=== PATIENT | female | born 1985 | race Caucasian/White ===

== ENCOUNTER 2021-10-31 22:48 | Inpatient (IN) ==
[2021-10-31] MEDS ORDERED: LACTATED RINGER'S 1,000 ML IV PRN (23:17)
[2021-10-31] MEDS ORDERED: OXYTOCIN 30 UNITS/500 ML BAG IV PRN (23:17)
--- NOTE | 2021-10-31 23:23 | History & Physical Report ---
Date of Service October 31, 2021 Assessment & Plan (1) Normal labor: Plan: IUP at 40 weeks in active labor requesting epidural analgesia anticipate vaginal History of Present Illness Primary Care Provider: Joanna Raymond DO Patient is a 26 yo white female EDC 10/27/21 who presents with SPROM at 2200 tonight for clear fluid. Irregular contractions prior to this then became much stronger. Pergnancy complicated by AMA. GBS - negative Allergies Allergy/AdvReac Type Severity Reaction Status Date / Time Sulfa (Sulfonamide Allergy Verified 10/24/21 15:21 Antibiotics) Home Medications Medication Instructions Recorded Confirmed Type prenat.vits,ivonne,[id number] 1 tab PO DAILY 03/14/21 10/31/21 History Patient History Medical History (Updated 10/31/21 @ 23:22 by Wandy Morales MD, FACOG) Depression with anxiety Surgical History Hx of lumbosacral spine surgery L4/S1 disectomy, laminectomy (2010)- no hardware S/P wisdom tooth extraction Family History Grandfather (Maternal) Colorectal cancer Mother Uterine cancer Cancer Brain Cancer Father Cancer kidney Grandfather (Paternal) Lung cancer Denies family history of Ovarian cancer Prostate cancer Breast cancer Social History (Updated 03/14/21 @ 15:13 by Evette Vargas, MARGARITA) Smoking Status: Former smoker Second Hand Exposure: No; Hx Alcohol Use: No Hx Substance Use: No Preferred Language: [place] Islander Communication Ability: Effective Visual Impairment: No Limitations Hearing Ability: Normal Healthcare Administration Internship Required: No Beliefs That Will Affect Care: None marital status: marital status details: Jose Juan Sevilla (31) [phone] Current Living Situation: Spouse Current Living Situation Comment: lives with spouse. No pets current occupational status: employed current occupation: [employer] Other Information That Helps Us Care for You: No Feels Safe at Home: Yes Safety Concerns: Feels Safe At This Time Assistive Devices: None Review of Systems All systems reviewed & are unremarkable except as noted in HPI & below Physical Exam 2 Constitutional: WD/WN, vitals as above Respiratory: normal respiratory effort, lungs clear to auscultation Cardiovascular: RRR, no murmur, no edema Psychiatric: A+Ox3, euthymic affect Genitourinary: OB Exam Abdomen: + vertex and + regular contractions Manual OB Exam: + cervical dilation 4 cm, + cervical effacement 100% and + station -1 Results & Data ([facility]) Vital Signs (Past 12 Hours) Vital Signs Temp Pulse Resp BP 10/31/21 23:14 75 173/89 H 10/31/21 23:13 74 191/105 H 10/31/21 22:58 98.1 F 20 Code Status & VTE Plan VTE Prophylaxis Plan VTE Prophylaxis will be ordered: No Coding Level of Care Code None Diagnoses Normal labor O80; Z37.9
[2021-10-31] MEDS ORDERED: BUPIVACAINE 0.25% 30 ML VIAL ONE (23:43)
[2021-10-31] MEDS ORDERED: fentaNYL 2MCG/ML ROPIVACAINE 1.25MG/ML 100 ML BAG EPI ONE (23:43)
[2021-10-31] MEDS ORDERED: ePHEDrine sulfate 50 MG/ML AMP ONE (23:43)
[2021-10-31] MEDS ORDERED: fentaNYL citrate 100 MCG/2 ML VIAL ONE (23:43)
[2021-10-31] MEDS ORDERED: SODIUM CHLORIDE 0.9% INJ 10 ML VIAL ONE (23:43)
[2021-10-31 23:57] LABS: Hematocrit (blood only) 40.5 % (37-47); Hemoglobin 13.8 g/dL (12.0-16.0); Mean Corpuscular Hemoglobin 30.3 pg (25-34); Mean Corpuscular Hgb Conc 34.1 g/dL (32-36); Mean Platelet Volume 11.8 fL (7.4-10.4); Platelet Count 243 K/uL (130-400); RDW Coefficient of Variation 12.2 % (11.5-14.5); RDW Standard Deviation 39.1 fL (36.4-46.3); Red Blood Count 4.55 M/uL (4.2-5.4); White Blood Count 17.95 K/uL (4.8-10.8)
[2021-11-01] MEDS ORDERED: NALOXONE HCL 0.4 MG/1 ML VIAL/CARP IV PRN (00:24)
[2021-11-01] MEDS ORDERED: NALBUPHINE HCL INJ 10 MG/ML AMP IV PRN (00:24)
[2021-11-01] MEDS ORDERED: ePHEDrine sulfate 50 MG/ML AMP IV PRN (00:24)
[2021-11-01] MEDS ORDERED: diphenhydrAMINE 50 MG/ML VIAL IV PRN (00:24)
[2021-11-01] MEDS ORDERED: ONDANSETRON INJ 2 MG/ML 2 ML VIAL IV PRN (00:24)
[2021-11-01] MEDS ORDERED: NALOXONE HCL 1 MG in SODIUM CHLORIDE 0.9% 1000ML 1,000 ML IV PRN (00:24)
[2021-11-01] MEDS ORDERED: fentaNYL 2MCG/ML ROPIVACAINE 1.25MG/ML 100 ML BAG EPI PRN (00:24)
--- NOTE | 2021-11-01 00:24 | Anesthesiology Consultation ---
Date of Service November 01, 2021 Assessment & Plan ASA ASA2 Proposed Anesthesia Anesthesia Type: Labor Epidural Risk / Benefits Reviewed With: PT / POA / Parent / Guardian, Accepts Plan and Informed Consent Obtained History Height/Weight Height: 5 ft 8 in Weight: 104.326 kg Allergies Allergy/AdvReac Type Severity Reaction Status Date / Time Sulfa (Sulfonamide Allergy Verified 10/24/21 15:21 Antibiotics) Medications Home Medications Medication Instructions Recorded Confirmed Last Taken prenat.vits,ivonne,eho-qmuw-ipvov 1 tab PO DAILY 03/14/21 10/31/21 10/31/21 Active Medications Generic Name Dose Route Start Last Admin Trade Name Freq PRN Reason Stop Dose Admin Lactated Ringer's 1,000 mls @ 125 mls/hr 10/31/21 23:17 11/01/21 00:05 Lr IV 11/02/21 23:16 125 mls/hr .Q8H PRN Infusion L&D Protocol Protocol Past Medical History Medical History (Updated 10/31/21 @ 23:22 by Wandy Morales MD, FACOG) Depression with anxiety Exercise / Class Metabolic Activity II 4-5 Yardwork/Stairs/Walk up hill Past Family History Family History Grandfather (Maternal) Colorectal cancer Mother Uterine cancer Cancer Brain Cancer Father Cancer kidney Grandfather (Paternal) Lung cancer Denies family history of Ovarian cancer Prostate cancer Breast cancer Past Surgical History Surgical History Hx of lumbosacral spine surgery L4/S1 disectomy, laminectomy (2010)- no hardware S/P wisdom tooth extraction Past Anesthesia History No Hx of Anesthesia Complications and No Family Hx of Anesthesia Complications History of PONV No Hx of PONV and No Hx of Motion Sickness Social History Smoking Status: Former smoker Hx Alcohol Use: No Hx Substance Use: No substance use type: does not use Review of Systems denies fever/cough/ colds/ chest pain/ SOB/ MATEO denies MATEO Physical Exam Vital Signs Last Vital Signs Temp 36.7 C 10/31/21 22:58 Pulse 129 H 11/01/21 00:48 Resp 20 10/31/21 22:58 BP 130/65 11/01/21 00:47 Pulse Ox 100 04/07/22 00:48 ENMT Mouth: no TMJ abnormality and no dentition abnormality Thyromental Distance: > or= 3.5 Finger Breadths Mallampati Class: II Neck neck extension not limited Respiratory normal respiratory effort; no respiratory distress Auscultation: lungs clear to auscultation bilaterally Cardiovascular Rate/Rhythm: regular rate and regular rhythm Neurologic moves all extremities Psychiatric Orientation: alert and oriented x 3 Testing Laboratory Results 10/31/21 23:43
[2021-11-01] MEDS ORDERED: bisacodyL 10 MG SUPP PR PRN (05:14)
[2021-11-01] MEDS ORDERED: oxyCODONE/ACETAMINOPHEN 5mg/325mg TAB PO PRN (05:14)
[2021-11-01] MEDS ORDERED: ACETAMINOPHEN 325 MG TAB PO PRN (05:14)
[2021-11-01] MEDS ORDERED: OXYTOCIN 30 UNITS/500 ML BAG IV PRN (05:14)
[2021-11-01] MEDS ORDERED: IBUPROFEN 600 MG TAB PO PRN (05:14)
[2021-11-01] MEDS ORDERED: HYDROCORTISONE ACETATE 25 MG SUPP PR PRN (05:14)
[2021-11-01] MEDS ORDERED: BENZOCAINE 20% AER SPR 82.5 GM CAN EXT PRN (05:14)
[2021-11-01] MEDS ORDERED: DIPHTHERIA/TETANUS/PERTUSSIS 0.5 ML SYR/VIAL IM ONE (05:14)
--- NOTE | 2021-11-01 05:17 | Delivery Summary ---
Vaginal Delivery Summary Date of Service November 01, 2021 Vaginal Delivery Summary Patient is a 36-year-old 1 P0 white female who presented at 40-5/7 weeks after spontaneous rupture of membranes and active labor. She received effective epidural analgesia. She progressed rapidly to full dilation and pushed effectively for delivery of a viable female . After the head was delivered a loose nuchal cord was reduced prior to delivering the rest of the infant. There was a body cord also present as the rest of the body was delivered. The infant was placed on mother's abdomen for further attention and drying. She was vigorous and moving all 4 limbs. The cord was clamped and cut after 1 minute. The placenta was then manually removed after it was trapped in the cervix. It was delivered intact with a three-vessel cord. The uterine cavity was found to be free of any retained tissue or membranes. bleeding was controlled with fundal massage and Pitocin. There was a superficial abrasion on both labia which were not bleeding and therefore not repaired. Estimated blood loss is 200 cc. Mother and are doing well after delivery. [facility] [place] Delivery Type Details: [facility]
--- NOTE | 2021-11-01 05:29 | Anesthesiology Progress Note ---
Date of Service November 01, 2021 Anesthesia Post Procedure Vital Signs Vital Signs: Temp Pulse Resp BP Pulse Ox 11/01/21 05:16 103 H 143/72 H 11/01/21 05:08 96 H 98 11/01/21 05:03 100 H 96 11/01/21 04:58 101 H 96 11/01/21 04:56 114 H 159/98 H 11/01/21 04:53 125 H 88 L 11/01/21 04:48 110 H 97 11/01/21 04:46 110 H 94 11/01/21 04:43 109 H 99 11/01/21 04:41 112 H 136/75 93 11/01/21 04:38 115 H 96 11/01/21 04:33 106 H 93 11/01/21 04:28 100 H 95 11/01/21 04:25 98 H 138/75 11/01/21 04:23 106 H 99 11/01/21 04:18 102 H 97 11/01/21 04:13 99 H 98 11/01/21 04:11 99 H 132/84 11/01/21 04:08 99 H 99 11/01/21 04:03 105 H 99 11/01/21 03:58 99 H 99 11/01/21 03:57 101 H 133/80 11/01/21 03:55 36.6 C 18 11/01/21 03:53 87 96 11/01/21 03:52 93 H 88 L 11/01/21 03:48 87 99 11/01/21 03:46 99 H 93 11/01/21 03:43 86 96 11/01/21 03:40 86 109/57 L 11/01/21 03:38 81 95 11/01/21 03:33 90 95 11/01/21 03:32 81 94 11/01/21 03:28 83 96 11/01/21 03:25 81 109/58 L 11/01/21 03:23 79 99 11/01/21 03:21 93 H 94 11/01/21 03:18 91 H 96 11/01/21 03:13 98 H 94 11/01/21 03:10 83 96/52 L 11/01/21 03:08 80 96 11/01/21 03:03 81 98 11/01/21 02:58 113 H 97 11/01/21 02:55 97 H 113/63 11/01/21 02:53 97 H 98 11/01/21 02:48 90 96 11/01/21 02:43 98 H 100 11/01/21 02:41 97 H 114/63 11/01/21 02:38 90 100 11/01/21 02:33 97 H 100 11/01/21 02:28 103 H 99 11/01/21 02:26 109 H 113/73 87 L 11/01/21 02:23 109 H 100 11/01/21 02:20 108 H 87 L 11/01/21 02:18 104 H 100 11/01/21 02:13 97 H 100 11/01/21 02:12 104 H 121/67 92 11/01/21 02:08 102 H 100 11/01/21 02:04 110 H 90 11/01/21 02:03 111 H 99 11/01/21 02:00 36.5 C 16 11/01/21 01:59 101 H 87 L 11/01/21 01:58 99 H 100 11/01/21 01:55 93 H 112/62 11/01/21 01:53 117 H 100 11/01/21 01:48 106 H 100 11/01/21 01:46 100 H 90 11/01/21 01:43 97 H 100 11/01/21 01:41 102 H 111/59 L 11/01/21 01:38 112 H 100 11/01/21 01:33 98 H 100 11/01/21 01:28 109 H 100 11/01/21 01:26 116 H 125/70 11/01/21 01:24 114 H 92 11/01/21 01:23 109 H 100 11/01/21 01:18 125 H 100 11/01/21 01:14 134 H 91 11/01/21 01:13 127 H 99 11/01/21 01:12 123 H 156/68 H 11/01/21 01:08 136 H 98 11/01/21 01:03 114 H 100 11/01/21 01:00 36.7 C 16 11/01/21 00:58 119 H 100 11/01/21 00:55 109 H 117/64 11/01/21 00:53 136 H 122/73 100 11/01/21 00:51 122 H 125/60 11/01/21 00:49 121 H 130/67 11/01/21 00:48 129 H 100 11/01/21 00:47 133 H 130/65 11/01/21 00:45 115 H 133/68 11/01/21 00:43 107 H 151/77 H 99 11/01/21 00:40 89 158/80 H 11/01/21 00:38 92 H 100 11/01/21 00:33 94 H 98 11/01/21 00:28 97 H 87 L 10/31/21 23:14 75 173/89 H 10/31/21 23:13 74 191/105 H 10/31/21 22:58 36.7 C 20 Pain Intensity Bilateral Abdomen: Pain Intensity: 2 Transfer of Care Handoff Completed per policy Notes Mental Status: alert / awake / arousable and participated in evaluation Patient Amnestic to Procedure: Yes Nausea / Vomiting: adequately controlled Pain: adequately controlled Airway Patency, RR, SpO2: stable & adequate BP & HR: stable & adequate Hydration State: stable & adequate Anesthetic Complications: no major complications apparent and Pt Satisfied with anesthetic care
[2021-11-01] MEDS: DOCUSATE SODIUM 100 MG CAP PO SCH ×2 (10:02→20:41)
[2021-11-01] MEDS: PRENATAL VITAMIN 1 TAB PO SCH (10:02)
[2021-11-02] MEDS ORDERED: MEASLES, MUMPS & RUBELLA VIRUS VIAL SQ ONE (05:23)
[2021-11-02 06:48] LABS: Hematocrit (blood only) 36.9 % (37-47); Hemoglobin 12.5 g/dL (12.0-16.0); Mean Corpuscular Hemoglobin 30.4 pg (25-34); Mean Corpuscular Hgb Conc 33.9 g/dL (32-36); Mean Corpuscular Volume 89.8 fL (80-100); Mean Platelet Volume 11.1 fL (7.4-10.4); Platelet Count 233 K/uL (130-400); RDW Coefficient of Variation 12.5 % (11.5-14.5); RDW Standard Deviation 40.9 fL (36.4-46.3); Red Blood Count 4.11 M/uL (4.2-5.4); White Blood Count 17.24 K/uL (4.8-10.8)
--- NOTE | 2021-11-02 07:00 | Obstetrical Progress Note ---
Date of Service November 02, 2021 Assessment & Plan (1) state: PPD#1, routine care, considering discharge later today but not decided Subjective Ambulation: ambulating normally Voiding: no voiding problems Passing Gas:: Yes Diet Tolerance:: regular diet Lochia:: Small Feeding Type:: breast feeding Physical Exam Constitutional WD/WN, vitals as above Eyes PERRL, conjunctivae normal, anicteric sclerae Neck normal visual inspection Respiratory normal respiratory effort and able to speak in complete sentences; no respiratory distress and no labored breathing Cardiovascular Rate/Rhythm: regular rate and regular rhythm Extremities: no edema Chest (Breasts) Chest: normal inspection of chest Gastrointestinal (Abdomen) Inspection/Auscultation: abdomen normal to inspection Soft, postgravid Psychiatric A+Ox3, euthymic affect Genitourinary OB Exam Abdomen: + fundal height Fundus: + firm and + relation to umbilicus (fundus just below umbilicus); not tender Results & Data ([facility]) Vital Signs (Past 12 Hours) Vital Signs Temp Pulse Resp BP Pulse Ox 11/02/21 00:00 98.2 F 76 18 132/82 97 11/01/21 20:35 99.0 F 92 H 16 134/82 98
[2021-11-02] MEDS: DOCUSATE SODIUM 100 MG CAP PO SCH ×3 (10:15→21:15)
[2021-11-02] MEDS: PRENATAL VITAMIN 1 TAB PO SCH (10:15)
[2021-11-02] MEDS ORDERED: bisacodyL 5 MG TABEC PO SCH (20:00)
[2021-11-03 06:48] LABS: Hematocrit (blood only) 39.6 % (37-47); Hemoglobin 13.3 g/dL (12.0-16.0)
--- NOTE | 2021-11-03 08:21 | Obstetrical Progress Note ---
Date of Service November 03, 2021 Assessment & Plan (1) state: Day 2 s/p doing well. Stable for discharge Subjective Ambulation: ambulating normally Voiding: no voiding problems Passing Gas:: Yes Diet Tolerance:: regular diet Lochia:: Moderate Feeding Type:: breast feeding Physical Exam Constitutional WD/WN, vitals as above Respiratory normal respiratory effort; no respiratory distress and no labored breathing Gastrointestinal (Abdomen) Inspection/Auscultation: abdomen normal to inspection; abdomen not distended Percussion/Palpation: abdomen soft; abdomen nontender, no guarding and abdomen not rigid Genitourinary OB Exam Abdomen: + fundal height Fundus: + firm and + relation to umbilicus (Below); not tender or not boggy Results & Data ([facility]) Vital Signs (Past 12 Hours) Vital Signs Temp Pulse Resp BP Pulse Ox 11/03/21 03:43 36.8 C 63 16 112/69 99 11/03/21 00:05 36.9 C 80 18 129/80 98
[2021-11-03] MEDS: DOCUSATE SODIUM 100 MG CAP PO SCH ×2 (09:20→09:22)
[2021-11-03] MEDS: PRENATAL VITAMIN 1 TAB PO SCH (09:21)
== END 2021-11-03 19:30 | disposition home or self-care (01) | DRG 807 ==
LOC: OPB 22:48 → 4S1 22:51 → 4E2 11-01 08:35